=== PATIENT | male | born 1980 | race Caucasian/White ===

== ENCOUNTER → 2017-05-22 | Emergency (ER) | payer OTHER ==
[~2017-05-22] VITALS: Ht 195.6 cm; Wt 155.6 kg
[~2017-05-22] MED LIST: MICARDIS HCT 41 EACH
== END | disposition home or self-care (01) ==
LOC: ER 04:53
DX: R10.31 Right lower quadrant pain (principal); R10.32 Left lower quadrant pain; K52.9 Noninfective gastroenteritis and colitis, unspecified

== ENCOUNTER → 2018-05-01 | Emergency (ER) | payer OTHER ==
[~2018-05-01] VITALS: Ht 195.6 cm; Wt 156.5 kg
[~2018-05-01] MED LIST changes: +MEDROLPACK PO
== END | disposition home or self-care (01) ==
LOC: ER 20:13
DX: M54.2 Cervicalgia (principal)

== ENCOUNTER 2022-04-26 18:45 | Emergency (ER) | payer OTHER ==
[~2022-04-26] VITALS: Ht 165.1 cm; Wt 131.5 kg
[2022-04-26] MEDS ORDERED: GLUMETZA500 MG PO (19:13)
== END 2022-04-26 22:02 | disposition home or self-care (01) ==
LOC: ER 18:45
DX: G89.4 Chronic pain syndrome (principal)

== ENCOUNTER 2022-12-28 20:15 | Emergency (ER) | payer OTHER ==
[~2022-12-28] VITALS: Ht 170.2 cm; Wt 104.3 kg
[~2022-12-28 20:15] MED LIST changes: +GLUMETZA500 MG PO
[2022-12-28 22:20] LABS: MEAN CELL VOLUME 80.2 fL (80.0-100.00); MEAN CORPUSCULAR HEMOGLOBIN 26.1 pg (27.00-32.0); MEAN CORPUSCULAR HGB CONC 32.5 g/dl (32.0-36.0); PLATELET COUNT 334 K/uL (150-450); RED BLOOD COUNT 4.99 M/uL (4.00-6.00); RED CELL DISTRIBUTION WIDTH 14.1 % (11.5-14.5)
[2022-12-28 22:51] LABS: ALBUMIN 3.2 gm/dL (3.4-5.0); BILIRUBIN TOTAL 0.19 mg/dL (0.3-1.2); CALCIUM 8.7 mg/dL (8.5-10.1); CREATININE SERUM 0.8 mg/dL (0.70-1.30); GFR 106.53; GLOBULINA 4.6 G/DL (2.4-3.5); POTASSIUM 3.86 mEq/L (3.5-5.1); TOTAL PROTEIN 7.8 gm/dL (6.4-8.2)
== END 2022-12-29 00:24 | disposition home or self-care (01) ==
LOC: ER 20:16
PROVIDERS: General Practice
DX: A09 Infectious gastroenteritis and colitis, unspecified (principal); N20.0 Calculus of kidney; K57.30 Diverticulosis of large intestine without perforation or abscess without bleeding
CPT/HCPCS: 36415; 74176; 96365; 99284; J3490